=== PATIENT | male | born 1960 | race Caucasian/White ===

== ENCOUNTER 2024-03-06 11:02 | Outpatient (AMB) | payer OTHER, SELFPAY ==
--- NOTE | 2024-03-06 11:04 | MHC.OFFVIS ---
Vital Signs 03/06/24 11:13 Height 5 ft 6 in Weight 199 lb 8 oz BMI 32.2 BP 189/90 H Blood Pressure Location Lt brachial Position Sitting Pulse 80 Intake Visit Reasons: Ventral and large inguinal hernia Intake Note: Patient is seen in office for evaluation of a ventral & left inguinal hernia. Pt c/o: ventral hernia onset 5 yrs, lump has increase, no symptoms, left inguinal hernia onset 5 half yrs, lump has also increase, pain when sitting at times no other symptoms imaging:zero PCP:02/23/24 Car Icer Required: No Accompanied by: Self / Same As Patient Allergies No Known Allergies Allergy (Verified 03/06/24 11:08) Medication List - Last Reconciled 03/06/24 by Sriram Wyman MD cetirizine (Zyrtec) 10 mg PO DAILY PRN multivitamin (One Daily Multivitamin tablet) 1 tab PO DAILY omega 7-eew-mhu-fish oil 100-160-1,000 mg (Fish Oil) caps PO HPI Comments Details: 63-year-old male patient presenting for evaluation of an umbilical hernia and possible large left inguinal hernia. He feels the hernias have been present for at least 5 years and have gradually increased in size. He initially denied any pain but recently has begun to note increased discomfort at both sites. He denies any previous history of hernia surgery. He has had shoulder surgery and is currently on restrictions because of this until April. He denies nausea, vomiting, fever, chills, diarrhea, or constipation. 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) S/P left rotator cuff repair (2006) S/P right rotator cuff repair (2004) Social History Alcohol intake: current Alcohol intake frequency: 3 or more drinks per day Patient Tobacco Use Status: Never used Tobacco Review of Systems Const All systems reviewed & are unremarkable except as noted in HPI and below Denies chills, Denies fever(s), Denies headache(s), Denies poor appetite and Denies weakness ENT Denies headache(s) Card Denies chest pain, Denies irregular heart rhythm, Denies palpitations and Denies dyspnea Resp Denies cough, Denies excessive phlegm production and Denies dyspnea GI Denies abdominal pain, Denies bloating, Denies change in bowel habits, Denies constipation, Denies heartburn, Denies diarrhea, Denies nausea and Denies vomiting Denies difficulty urinating and Denies urinary frequency Musc Denies back pain, Denies muscle weakness and Denies numbness Skin/Breast Denies changing lesions and Denies unusual bruising Neuro Denies headache(s), Denies numbness, Denies paresthesias and Denies weakness Psych Denies anxiety and Denies depression Endo Denies palpitations Raman/Lymph Denies lymphadenopathy Physical Exam Vital Signs: Last Vital Signs Pulse 80 03/06/24 11:13 BP 189/90 H 03/06/24 11:13 BMI result Body Mass Index 32.2 Const General: cooperative and no acute distress Nutritional Appearance: well nourished Orientation/consciousness: patient oriented x3 Limitations: no limitations HEENT Head: Yes normocephalic and Yes atraumatic Ears: hearing grossly normal bilaterally Resp Effort & Inspection: normal respiratory effort, no audible wheezes, no cough and no respiratory distress Cardio Jugular venous distension: no JVD GI Other: Large umbilical and periumbilical hernia noted measuring at least 6 cm in diameter. Hernia does reduce with light pressure. No overlying skin changes are appreciated. Examination of the left groin reveals a large left scrotal hernia which transilluminates suggestive of a large hydrocele. Findings are suggestive of a communicating hydrocele. No hernias noted on the right side. Inspection: Yes normal to inspection Skin Other: Warm, dry, no rash Neuro General: patient oriented x3 Extrem General: Yes no clubbing, cyanosis or edema Assessment & Plan Assessment & Plan (1) Umbilical hernia without obstruction and without gangrene: Code(s): K42.9 - Umbilical hernia without obstruction or gangrene Category: Medical (2) Left hydrocele: Code(s): N43.3 - Hydrocele, unspecified Category: Medical (3) Left inguinal hernia: Code(s): K40.90 - Unilateral inguinal hernia, without obstruction or gangrene, not specified as recurrent Category: Medical Plan 63-year-old male patient presenting with both a large reducible umbilical hernia and combination left inguinal hernia with hydrocele. I recommended repair of both hernias with mesh and after discussion of the procedure, risks, and alternatives he consents to repair of the umbilical hernia and left inguinal hernia/hydrocele with mesh. Coding Level of Care Code New Pt Level 4 (86674) Diagnoses Umbilical hernia without obstruction and without gangrene K42.9 Left hydrocele N43.3 Left inguinal hernia K40.90
[2024-03-06 11:13] VITALS: BP 189/90; PULSE 80; BMI 32.2
== END 2024-03-06 11:24 | disposition home or self-care (01) ==
PROVIDERS: PCP Internal Medicine; Referring Provider Internal Medicine; Visit Provider Surgery
DX: K42.9 Umbilical hernia without obstruction or gangrene (principal); N43.3 Hydrocele, unspecified; K40.90 Unilateral inguinal hernia, without obstruction or gangrene, not specified as recurrent
CPT/HCPCS: 99204

== ENCOUNTER → 2024-03-06 11:02 | Outpatient (BNVA) | payer OTHER, SELFPAY | PROVIDERS: PCP Internal Medicine; Referring Provider Internal Medicine; Visit Provider Surgery ==

== ENCOUNTER 2024-04-02 10:40 | Day surgery (SDC) | payer OTHER, SELFPAY ==
[2024-03-26 09:44] VITALS: BMI 32.0
--- NOTE | 2024-03-27 10:27 | P.CONAN_ITS ---
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) S/P left rotator cuff repair (2006) S/P right rotator cuff repair (2004) Social History Social History Are you a primary pharmacist critical care to a significant other at home: No Do you presently have visiting nurse or other home services: No Alcohol intake: current Alcohol intake frequency: 3 or more drinks per day Patient Tobacco Use Status: Never used Tobacco Meds Allergies Allergy/AdvReac Type Severity Reaction Status Date / Time No Known Allergies Allergy Verified 04/02/24 11:57 Home Medications ?Medication ?Instructions ?Recorded ?Confirmed ?Last Taken ?Type cetirizine 10 mg capsule (Zyrtec) 10 mg PO Q2D 03/06/24 04/02/24 Unknown History multivitamin (One Daily 1 tab PO DAILY 03/06/24 04/02/24 03/18/24 History Multivitamin tablet) omega 8-aco-rve-fish oil 100 1 cap PO DAILY 03/06/24 04/02/24 04/18/23 History mg-160 mg-1,000 mg capsule (Fish Oil) Exam Height,Weight and Vital Signs: Height 5 ft 6 in Weight 89.811 kg Pertinent Lab Results Pertinent Lab Results: CBC and CMP from outside facility 02/2024 OK Assessment and Plan Assessment Anesthesia Assessment: Chart Reviewed Documented by User: Ramy Nathan MD 04/02/24 12:39 PMFSH Past Medical History Medical History (Updated 03/26/24 @ 09:42 by Jeri Evans RN) Seasonal allergies Family History Family history of problems with anesthesia: No Surgical History Surgical History Hx of arthroscopic knee surgery 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) S/P left rotator cuff repair (2006) S/P right rotator cuff repair (2004) History of Problems with Anesthesia: No Social History Social History Are you a primary pharmacist critical care to a significant other at home: No Do you presently have visiting nurse or other home services: No Alcohol intake: current Alcohol intake frequency: 3 or more drinks per day Patient Tobacco Use Status: Never used Tobacco Meds Allergies Allergy/AdvReac Type Severity Reaction Status Date / Time No Known Allergies Allergy Verified 04/02/24 11:57 Home Medications ?Medication ?Instructions ?Recorded ?Confirmed ?Last Taken ?Type cetirizine 10 mg capsule (Zyrtec) 10 mg PO Q2D 03/06/24 04/02/24 Unknown History multivitamin (One Daily 1 tab PO DAILY 03/06/24 04/02/24 03/18/24 History Multivitamin tablet) omega 3-rkx-rmk-fish oil 100 1 cap PO DAILY 03/06/24 04/02/24 04/18/23 History mg-160 mg-1,000 mg capsule (Fish Oil) Exam Airway Mallampati Class: II TM Dist: >3cm Neck ROM: Full Assessment and Plan Assessment Anesthesia Assessment: Anesthesia Plan Discussed Final Anesthetic Review Family History of Problems with Anesthesia: No History of Problems with Anesthesia: No NPO: Yes ASA Class: II Final Preanesthetic Review: No Changes in Pt Med Stat, Meds/Allgs Chart Reviewed, Consent Obtained/Reviewed, Anes Risks/Benef Reviewed and DNR Form (If Appl.) Patient Risk: Low Procedure Risk: Low Anesthetic Plan Anesthetic Plan: GA Disposition: Standard PACU
[2024-04-02] VITALS (7 sets, daily range): BP systolic 131–180; BP diastolic 58–76; PULSE 75–81; RESP 16–18; TEMP 36.1–37.1; O2SAT 93–98; BMI 31.7
[2024-04-02] MEDS: Lactated Ringers 1,000 ML 100 ML IVCONT (12:51)
--- NOTE | 2024-04-02 13:47 | MHC.SHP ---
Pre-Procedural Eval Section A - 24 Hr Update-Section A only Date of Service: 04/02/24 The patient is an INPATIENT: No Changes since office visit: Yes Patient answered all questions; No Cold of Flu in the past 2 weeks, No New Medical Problems and No Changes in Medication The patient has been examined within 24 hours of the surgical procedure. The History & Physical has been completed within 30 days and I have reviewed it.: Yes Section B - Complete if H&P > 30 days Chief Complaint: Umbilical hernia without obstruction or gangrene Allergies: Allergies Allergy/AdvReac Type Severity Reaction Status Date / Time No Known Allergies Allergy Verified 04/02/24 11:57 Plan Diagnosis/Plan: Unchanged I have reviewed the history and physical and performed a pertinent physical examination on my patient. No changes have occurred unless specified. Time Spent With Patient Time: Total time managing care of this patient today ____ minutes.
--- NOTE | 2024-04-02 15:40 | W.PM.OPN ---
Operative Note Operative Note Date of Service: 04/02/24 Narrative: Preoperative diagnosis: Left inguinal hernia, left hydrocele, umbilical hernia Postoperative diagnosis: Same Procedure: Repair left inguinal hernia with mesh, hydrocelectomy, repair of umbilical hernia with mesh Surgeon: Sriram Wyman MD Cath Lab Technologist: Carrie Chaney PA-C Anesthesia: General LMA Indications for procedure: 64-year-old male patient presenting with a large hydrocele in the left groin as well as a left inguinal hernia and umbilical hernia. On examination he has a large left hydrocele which does not increase in size with Valsalva maneuvers suggestive of a noncommunicating hydrocele. Umbilical hernia measures 6 cm in diameter Operative findings: Large left noncommunicating hydrocele, indirect left inguinal hernia, umbilical hernia 5 cm in diameter Specimen: Hernia sac, hydrocele Estimated blood loss: 10 mL Complications: None Procedure details: Patient was brought to the OR and placed in a supine position. After administering general anesthesia the patient's abdomen and scrotum were prepped with ChloraPrep and draped in a sterile fashion. A surgical time-out was called the consent confirmed. Patient received preoperative antibiotics and Venodyne boots were in place. Local anesthesia was infiltrated over the left inguinal ligament. Incision was then made with a scalpel and carried out through subcutaneous tissue, past Jaye's fascia and up to the external oblique aponeurosis. Additional local was infiltrated below the external oblique aponeurosis. This was then incised with a scalpel widened with the Metzenbaum scissors. The spermatic cord was then dissected free from the surrounding inguinal canal and retracted using a [place] drain. No direct hernia could be identified. Fibers of the cremaster muscle were then and a small indirect left inguinal hernia was identified. This was dissected down to the internal ring, ligated with a 0 Polysorb suture and then excised. Attention was then directed to the hydrocele which brought up through the incision. The sac was entered and a large hydrocele drained. Hydrocele sac was then completely excised and sent to pathology for further examination. Hemostasis was assured using electrocautery. Testicle was returned to the scrotal sac. Wounds were then irrigated with saline solution and suctioned dry. Fibers of the internal oblique aponeurosis and transversalis were using electrocautery. Preperitoneal space was then entered. This was widened using a open Ray-Neda sponge. A large extended PHS mesh was then obtained. The circular underlay was then deployed within the preperitoneal space. The overlay was then secured to the pubic tubercle, shelving edge of the inguinal ligament, and conjoined tendon using a 0 Polysorb suture. A slit was made in the mesh in the mesh wrapped around the spermatic cord at the internal ring. This was secured to the shelving edge using a 0 Polysorb suture. External oblique aponeurosis was then reapproximated using a running 2-0 Polysorb suture. 8 mL of Zenrelef was then instilled below the external oblique aponeurosis. Jaye's fascia and dermis were then reapproximated using interrupted 3-0 Polysorb sutures. Skin was then closed using a running subcuticular 4-0 Polysorb suture. Attention was then directed to the umbilical hernia. A curvilinear transverse incision was then created with a scalpel and carried out through subcutaneous tissue up to the hernia sac. The hernia sac was then dissected from the surrounding subcutaneous tissue down to the fascial defect. Two defects were noted adjacent to each other. These were combined into 1 fascial defect. The hernia sac was then dissected free from the surrounding fascia and excised. A preperitoneal space was then created using electrocautery and blunt dissection. An 8 cm round Ventralex mesh was then obtained. This was deployed within the preperitoneal space and secured in 4 quadrants using a 0 Tycron suture. Fascia was then closed over the mesh using a 0 Tycron sutures in a himthp-yo-dysty fashion. The mesh was completely covered by the fascia. Wounds were then irrigated with saline solution and suctioned dry. Subcutaneous tissue and dermis were then reapproximated using interrupted 3-0 Polysorb sutures. Skin was then closed using a running subcuticular 4-0 Polysorb suture. Steri-Strips, 2 x 2 gauze and Tegaderm were then applied. The patient tolerated the procedure well. Sponge, instrument, and needle counts reported as correct. The patient was transferred to PACU in stable condition.
[2024-04-02] MEDS: fentaNYL citrate/PF 100 MCG/2 ML VIAL 50 MCG IVPUSH (15:49)
== END 2024-04-02 16:44 | disposition home or self-care (01) ==
PROVIDERS: PCP Internal Medicine; Visit Provider Surgery
PROC: (CPT 49505; principal; 2024-04-02 13:10)
PROC: (CPT 49505; 2024-04-02 13:10)
DX: K40.90 Unilateral inguinal hernia, without obstruction or gangrene, not specified as recurrent (principal); N43.3 Hydrocele, unspecified; K42.9 Umbilical hernia without obstruction or gangrene; J30.2 Other seasonal allergic rhinitis; Z79.1 Long term (current) use of non-steroidal anti-inflammatories (NSAID); Z79.899 Other long term (current) drug therapy; Z96.611 Presence of right artificial shoulder joint; Z98.890 Other specified postprocedural states
CPT/HCPCS: 49505; 49593; 88302; C1781; C9088; J0131; J0690; J1100; J2003; J2250; J2405; J2704; J3010

== ENCOUNTER → 2024-04-02 10:40 | Outpatient (BNV) | payer OTHER, SELFPAY | PROVIDERS: PCP Internal Medicine; Visit Provider Surgery | DX: K40.90 Unilateral inguinal hernia, without obstruction or gangrene, not specified as recurrent (principal); K42.9 Umbilical hernia without obstruction or gangrene; N43.3 Hydrocele, unspecified | CPT/HCPCS: 49505; 49593; 55040; 55540 ==

== ENCOUNTER 2024-04-12 11:14 | Outpatient (AMB) | payer OTHER, SELFPAY ==
--- NOTE | 2024-04-12 11:15 | MHC.OFFVIS ---
Vital Signs 04/12/24 11:23 Height 5 ft 6 in Weight 200 lb 2 oz BMI 32.3 BP 178/82 H Blood Pressure Location Lt brachial Position Sitting Pulse 71 Intake Visit Reasons: S/P umbilical hernia & LIH/hydrocele w/mesh Intake Note: Patient is seen in office for post op assessment post repair LIH with mesh, hydrocelectomy & repair of umbilical hernia with mesh. Pt c/o: denies any concerns healing as expected surgery:04/02/24 Cook Pie Required: No Accompanied by: Self / Same As Patient Allergies No Known Allergies Allergy (Verified 04/12/24 11:19) Medication List - Last Reconciled 04/12/24 by Sriram Wyman MD cetirizine (Zyrtec) 10 mg PO Q2D multivitamin (One Daily Multivitamin tablet) 1 tab PO DAILY omega 2-yqy-ctv-fish oil 100-160-1,000 mg (Fish Oil) 1 cap PO DAILY HPI Comments Details: 64-year-old male patient returning 1 week following repair of an umbilical hernia and left inguinal hernia with hydrocele performed on 04/02/2024. He reports tolerating the procedure well with only a small area of burning below the incision on the left groin. He denies any bleeding or discharge from either incision. He denies any swelling in the testicle but did have some bruising initially. 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) S/P left rotator cuff repair (2006) S/P right rotator cuff repair (2004) Social History Are you a primary career professional to a significant other at home: No Do you presently have visiting nurse or other home services: No Alcohol intake: current Alcohol intake frequency: 3 or more drinks per day Patient Tobacco Use Status: Never used Tobacco Review of Systems Const All systems reviewed & are unremarkable except as noted in HPI and below Physical Exam Vital Signs: Last Vital Signs Pulse 71 04/12/24 11:23 BP 178/82 H 04/12/24 11:23 BMI result Body Mass Index 32.3 Const General: comfortable Nutritional Appearance: well nourished Orientation/consciousness: patient oriented x3 Resp Effort & Inspection: normal respiratory effort, no audible wheezes, no cough and no retractions GI Other: Soft, nondistended, well-healed umbilical incision with minimal edema surrounding the incision. Left groin incision is clean, dry, and intact. No hydrocele or seroma is identified. Testes is descended. Skin General skin exam: no rashes or lesions noted Neuro General: patient oriented x3 Assessment & Plan Assessment & Plan (1) Umbilical hernia without obstruction and without gangrene: Code(s): K42.9 - Umbilical hernia without obstruction or gangrene Category: Medical (2) Left inguinal hernia: Code(s): K40.90 - Unilateral inguinal hernia, without obstruction or gangrene, not specified as recurrent Category: Medical (3) Left hydrocele: Code(s): N43.3 - Hydrocele, unspecified Category: Medical Plan 64-year-old male status post repair of an umbilical hernia and left inguinal hernia with hydrocele. He tolerated the procedure well in his wounds are healing nicely. He should continue to avoid lifting greater than 10 lb for another 4 weeks. He will return at that time for wound examination. He is welcome to call sooner for any new complaints. Coding Level of Care Code Global (00884) Diagnoses Umbilical hernia without obstruction and without gangrene K42.9 Left inguinal hernia K40.90 Left hydrocele N43.3
[2024-04-12 11:23] VITALS: BP 178/82; PULSE 71; BMI 32.3
== END 2024-04-12 11:37 | disposition home or self-care (01) ==
PROVIDERS: PCP Internal Medicine; Visit Provider Surgery
DX: K42.9 Umbilical hernia without obstruction or gangrene (principal); K40.90 Unilateral inguinal hernia, without obstruction or gangrene, not specified as recurrent; N43.3 Hydrocele, unspecified
CPT/HCPCS: 99024

== ENCOUNTER 2024-05-18 09:20 | Outpatient (AMB) | payer OTHER, SELFPAY ==
--- NOTE | 2024-05-18 09:21 | A.OFFVIS_ITS ---
Intake Visit Reasons: 1 mth S/P umbilical hernia & LIH/hydrocele w/mesh Intake Note: Patient is seen in office for one month follow up visit, post LIH , hydrocelectomy & umbilical hernia repair. Pt c/o: reports incisions healing well. No longer taking rx pain meds. Traffic Control Supervisor Required: No Accompanied by: Self / Same As Patient Allergies No Known Allergies Allergy (Verified 05/18/24 09:31) HPI Comments Details: Patient returns 1 month following repair of a left inguinal hernia with hydrocele with mesh and umbilical hernia repair with mesh. He feels well and denies any abdominal pain at this time. He denies any scrotal swelling. 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) S/P left rotator cuff repair (2006) S/P right rotator cuff repair (2004) Social History Are you a primary manager managed care to a significant other at home: No Do you presently have visiting nurse or other home services: No Alcohol intake: current Alcohol intake frequency: 3 or more drinks per day Patient Tobacco Use Status: Never used Tobacco Physical Exam Const General: comfortable Nutritional Appearance: well nourished Orientation/consciousness: patient oriented x3 Resp Effort & Inspection: normal respiratory effort, no audible wheezes, no cough and no retractions GI Other: Soft, nondistended, well-healed umbilical incision with minimal edema surrounding the incision. Left groin incision is clean, dry, and intact. No hydrocele or seroma is identified. Testes is descended. Skin General skin exam: no rashes or lesions noted Neuro General: patient oriented x3 Assessment & Plan Assessment & Plan (1) Umbilical hernia without obstruction and without gangrene: Code(s): K42.9 - Umbilical hernia without obstruction or gangrene Category: Medical (2) Left inguinal hernia: Code(s): K40.90 - Unilateral inguinal hernia, without obstruction or gangrene, not specified as recurrent Category: Medical (3) Left hydrocele: Code(s): N43.3 - Hydrocele, unspecified Category: Medical Plan 64-year-old male status post repair of an umbilical hernia and left inguinal hernia with hydrocele one-month ago. He tolerated the procedure well in his wounds are healing nicely. There is no evidence of recurrent hernia or of wound infection. He may resume normal activity without restrictions and should follow up as needed. Coding Level of Care Code Global (80579) Diagnoses Umbilical hernia without obstruction and without gangrene K42.9 Left inguinal hernia K40.90 Left hydrocele N43.3
== END 2024-05-18 09:38 | disposition home or self-care (01) ==
PROVIDERS: PCP Internal Medicine; Visit Provider Surgery
DX: K42.9 Umbilical hernia without obstruction or gangrene (principal); K40.90 Unilateral inguinal hernia, without obstruction or gangrene, not specified as recurrent; N43.3 Hydrocele, unspecified
CPT/HCPCS: 99024

== ENCOUNTER → 2024-05-18 09:20 | Outpatient (BNVA) | payer OTHER, SELFPAY | PROVIDERS: PCP Internal Medicine; Visit Provider Surgery ==

== ENCOUNTER 2024-08-10 07:00 | Day surgery (SDC) | payer OTHER, SELFPAY ==
--- OUTSIDE RECORDS SUMMARY | 2024-07-04 09:16 | XMS_ITS | Patient Health Record ---
Author Organization [facility] Address [address] [place] [address] Care Team Providers Care Order Worker Name Role Phone Clarisa Knott Primary Care Provider Unavailab Bobo Street Jr [phone] Allergies No Known Allergies Reason For Referral No Information Medications Medication SIG (Take, Route, Fr equency, Duration) Notes Start Date End Date Status Multivitamin - 1 tablet Orally Once a day Active Allergy Active Fish Oil Active Social History Tobacco Use: Social History Observation Description Date Details (start date - stop date) Never Smoker NA - NA Tobacco Control (Standard) Question Answer Notes Tobacco use: Nonsmoker AUDIT-C (Standard) Question Answer Notes Did you have a drink contain ing alcohol in the past year? Yes How often did you have a dri nk containing alcohol in the past year? 2 to 3 times a week (3 points) How many drinks did you have on a typical day when you were drinking in the past year? 1 or 2 drinks (0 point) How often did you have six o r more drinks on one occasion in the past year? Never (0 point) Points 3 Interpretation Negative Vital Signs Blood pressure diastolic 11 mm Hg 06/28/2024 Height 67 in 06/28/2024 Blood pressure systolic 111 mm Hg 06/28/2024 Weight 201 lbs 06/28/2024 BMI 31.48 kg/m2 06/28/2024 Encounters Encounter Location Date Provider Diagnosis [facility] [address] [place] [address] 06/28/2024 Bobo Phoenix Jr Colon cancer screening Z12.11 Assessments Encounter Date Diagnosis (ICD Code) Assessment Notes Treatment Notes Treatment Clinical Notes Section Notes 06/28/2024 Colon cancer screening (ICD-10 - Z12.11) Plan Of Treatment Future Test Test Name Order Date COLONOSCOPY 06/28/2024 Next Appt Details Provider Name:Bobo Riki noble Jr, 08/10/2024 09:20:00 AM, [address] [place] [address] , [place], [place], [id number], Insurance Providers Payer Name Payer Address Payer Phone Subscriber Number Group Number Insured Name Patient Relationship to Insured Coverage Start Date Coverage End Date [employer] [place] [address] [id number] ALFREDO EMERSON Self - patient is the insured Medical (General) History Medical History History ICD Code Denies [place],DM,CVA,Lung disease,renal dise ase Surgical History Surgery Date(Month/Year) hernia surgery 2024 right shoulder replacement 2023 rotator cuff tear repair left and right [id number]
--- OUTSIDE RECORDS SUMMARY | 2024-07-04 09:17 | XMS_ITS ---
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 Name Role Phone Clarisa Knott Primary Care Provider UnavailBobo Bennett Jr [phone] Allergies No Known Allergies REASON FOR VISIT Patient presents today for a COLON SCREENING Medications Medication SIG (Take, Route, Fr equency, [...] 3 Interpretation Negative Vital Signs Blood pressure systolic 111 mm Hg 06/29/19 25 Blood pressure diastolic 11 mm Hg 025 Height 67 in 06/28/2024 Weight 201 lbs 06/28/2024 BMI 31.48 kg/m2 06/28/2024 Encounters Encounter Location Date Provider Diagnosis [facility] [address] [place] [address] 06/28/2024 Bobo Phoenix Jr Colon cancer screening Z12.11 Assessments Encounter Date Diagnosis (ICD Code) Assessment Notes Treatment Notes Treatment Clinical Notes Section Notes 06/28/2024 Colon cancer screening (ICD-10 - Z12.11) Plan Of Treatment Future Test Test Name Order Date COLONOSCOPY 06/28/2024 Next Appt Details Provider Name:Bobo noble Jr, 08/10/2024 09:20:00 AM, [address] [place] [address] , [place], [place], [id number], Progress Notes * ALFREDO EMERSONDOB: 2 (64 yo M)Acc No.[id number]:06/28/2024 Progress Notes Patient:?ALFREDO EMERSON Provider:?Bobo Phoenix MD :1960???Age:64 Y???Sex:Male Barber e:06/28/2024 Address:[address] [place], [place] [id number] Pcp:Clarisa Knott Subjective: * Chief Complaints: * ???1. Patient presents today for a COLON SCREENING. * Medical History:?Denies NH,D M,CVA,Lung disease,renal disease. * Surgical History:?rotator cu ff tear repair left and right [id number], right shoulder replacement 2023, hernia surgery 2024. * Family History:?Father: dece ased, prostate cancer, diagnosed with Diabetes.?Mother: .? no known hx colon cancer. * Social History:?Tobacco Use:?Tobacco Control (Standard)?Tobacco use:?Nonsmoker.?Miscellaneous:?Marital status: . 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 ???Drug/Alcohol:?AUDIT-C (Standard)?Did you have a drink containing alcohol in the past year??Yes,?How often did you have a drink containing alcohol in the past year??2 to 3 times a week (3 points),?How many drinks did you have on a typical day when you were drinking in the past year??1 or 2 drinks (0 point),?How often did you have six or more drinks on one occasion in the past year??Never (0 point),?Points?3,?Interpretation?Negative.? * Medications:?Taking Allergy , Taking Fish Oil , Taking Multivitamin - Tablet 1 tablet Orally Once a day , Medication List reviewed and reconciled with the patient * Allergies:?N.K.D.A. Objective: * Vitals:?Wt:201lbs, Ht:67in, BMI:31.48Index, BP:111/11mm Hg, Ht-cm: 170.18, Wt- k.17. Assessment: * Assessment: 1.?Colon cancer screening - Z12.11 (Primary)??? Plan: * Treatment: * Preventive Medicine:? ??Counseling:?Care goal follow-up plan:?Above Normal BMI Follow-up?Giving encouragement to exercise,?BMI management provided?Yes.? * * The named appointment provid er may or may not be the originator of this progress note, and it is not deemed complete until electronically signed by the appointment provider. Sign off status: Pending * Provider:?Bobo Phoenix MD Date:?0 06/28/2024 Generated for Per espinoza/Nalini/eTransmitting on:?07/04/2024 09:16 AM EDT
[2024-08-08 11:45] VITALS: BMI 31.5
[2024-08-10 07:19] VITALS: BP 172/70; PULSE 70; RESP 17; TEMP 36.8; O2SAT 99
[2024-08-10] MEDS: Lactated Ringers 1,000 ML 100 ML IVCONT (07:24)
--- NOTE | 2024-08-10 07:43 | HO.ANESPROP2 ---
Documented by User: Rosey Erickson NP 08/09/24 09:18 HPI - Anesthesia Eval Consult details Narrative: 64yo M for Colonoscopy s/p inguinal hernia repair 03/2024 with GA-LMA 5 PMFSH Active Problems Active Problems: All Active Problems Left inguinal hernia (Acute) Left hydrocele (Acute) Umbilical hernia without obstruction and without gangrene (Acute) Past Medical History Medical History Seasonal allergies Family History Family history of problems with anesthesia: No Surgical History Surgical History Hx of left inguinal hernia repair (04/02/24) Hx of umbilical hernia repair (04/02/24) Hx of arthroscopic knee surgery 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) S/P left rotator cuff repair (2006) S/P right rotator cuff repair (2004) History of Problems with Anesthesia: No Social History Social History Are you a primary respite care provider to a significant other at home: No Do you presently have visiting nurse or other home services: No Alcohol intake: current Alcohol intake frequency: 3 or more drinks per day Patient Tobacco Use Status: Never used Tobacco Use of substances other than those prescribed or required for medical reasons: No Have you been hit, kicked, punched, or otherwise hurt by someone within the past year? If so, by whom?: No Are you DNR?: No Advance Directives: No Advance Directives Information Provided: Yes Meds Allergies Allergy/AdvReac Type Severity Reaction Status Date / Time No Known Allergies Allergy Verified 08/10/24 07:11 Home Medications ?Medication ?Instructions ?Recorded ?Confirmed ?Last Taken ?Type cetirizine 10 mg capsule (Zyrtec) 10 mg PO Q2D 03/06/24 08/10/24 Unknown History multivitamin (One Daily 1 tab PO DAILY 03/06/24 08/10/24 03/18/24 History Multivitamin tablet) omega 5-ghr-ncy-fish oil 100 1 cap PO DAILY 03/06/24 08/10/24 07/31/24 History mg-160 mg-1,000 mg capsule (Fish Oil) Exam Height,Weight and Vital Signs: Height 5 ft 7 in Weight 91.172 kg Assessment and Plan Assessment Anesthesia Assessment: Chart Reviewed Final Anesthetic Review Family History of Problems with Anesthesia: No History of Problems with Anesthesia: No Documented by User: Mohini Simpson, DO 08/10/24 07:45 [facility] Past Medical History Medical History Seasonal allergies Family History Family history of problems with anesthesia: No Surgical History Surgical History Hx of left inguinal hernia repair (04/02/24) Hx of umbilical hernia repair (04/02/24) Hx of arthroscopic knee surgery 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) S/P left rotator cuff repair (2006) S/P right rotator cuff repair (2004) History of Problems with Anesthesia: No Social History Social History Are you a primary respite care provider to a significant other at home: No Do you presently have visiting nurse or other home services: No Alcohol intake: current Alcohol intake frequency: 3 or more drinks per day Patient Tobacco Use Status: Never used Tobacco Use of substances other than those prescribed or required for medical reasons: No Have you been hit, kicked, punched, or otherwise hurt by someone within the past year? If so, by whom?: No Are you DNR?: No Advance Directives: No Advance Directives Information Provided: Yes Meds Allergies Allergy/AdvReac Type Severity Reaction Status Date / Time No Known Allergies Allergy Verified 08/10/24 07:11 Home Medications ?Medication ?Instructions ?Recorded ?Confirmed ?Last Taken ?Type cetirizine 10 mg capsule (Zyrtec) 10 mg PO Q2D 03/06/24 08/10/24 Unknown History multivitamin (One Daily 1 tab PO DAILY 03/06/24 08/10/24 03/18/24 History Multivitamin tablet) omega 5-pga-wim-fish oil 100 1 cap PO DAILY 03/06/24 08/10/24 07/31/24 History mg-160 mg-1,000 mg capsule (Fish Oil) Exam Exam Date and Time: 08/10/24 0743 Height,Weight and Vital Signs: Height 5 ft 7 in Weight 91.172 kg Vital Signs Temperature 98.2 F 08/10/24 07:19 Pulse Rate 70 08/10/24 07:19 Respiratory Rate 17 08/10/24 07:19 Blood Pressure 172/70 H 08/10/24 07:19 Pulse Oximetry 99 08/10/24 07:19 Oxygen Delivery Method Room Air 08/10/24 07:19 Temperature 98.2 F 08/10/24 07:19 Pulse Rate 70 08/10/24 07:19 Respiratory Rate 17 08/10/24 07:19 Blood Pressure 172/70 H 08/10/24 07:19 Pulse Oximetry 99 08/10/24 07:19 Oxygen Delivery Method Room Air 08/10/24 07:19 Airway Mallampati Class: I TM Dist: >3cm Neck ROM: Full Loose/Missing/Broken Teeth: No (patient denies any loose or broken teeth) Heart: S1S2 Lungs: CTAB Assessment and Plan Assessment Anesthesia Assessment: Anesthesia Plan Discussed and Chart Reviewed Final Anesthetic Review Family History of Problems with Anesthesia: No History of Problems with Anesthesia: No NPO: Yes ASA Class: II Final Preanesthetic Review: No Changes in Pt Med Stat, Meds/Allgs Chart Reviewed, Consent Obtained/Reviewed and Anes Risks/Benef Reviewed Patient Risk: Low Procedure Risk: Low Anesthetic Plan Anesthetic Plan: MAC: and Agree w/ Assess. and Plan Disposition: Standard PACU
--- NOTE | 2024-08-10 08:23 | P.HPSUR_ITS ---
Pre-Procedural Eval Section A - 24 Hr Update-Section A only Date of Service: 08/10/24 Section B - Complete if H&P > 30 days Chief Complaint: Encounter for screening for malignant neoplasm of Details of Present Illness: see H&P no changes Relevant Family History (Specify if Yes): No Relevant Social History: None Present Medications: see Short Stay Collaborative assessment Medical History: No relevant PMH History of Previous Operations: No relevant previous surgery Allergies: Allergies Allergy/AdvReac Type Severity Reaction Status Date / Time No Known Allergies Allergy Verified 08/10/24 07:11 Review of Systems Sugical H&P ROS: Negative: Constitution, Cardiovascular, Respiratory, Neurological, Psychiatric, Hem-Onc, Allergic/Immunologic, Gastrointestinal, Genitourinary, Musculoskeletal, Integumentary, Endocrine and Eyes/Ears/No se/Throat Exam Surgical H&P Exam: Normal: HEENT, Normal: Heart, Normal: Lungs, Normal: Extremities, Normal: Abdomen, Normal: Skin and Normal: Neurological Plan Diagnosis/Plan: Unchanged I have reviewed the history and physical and performed a pertinent physical examination on my patient. No changes have occurred unless specified. Time Spent With Patient Time: Total time managing care of this patient today ____ minutes.
[2024-08-10 09:08] VITALS: BP 90/50; PULSE 61; RESP 12; TEMP 36.9; O2SAT 95
[2024-08-10 09:28] VITALS: BP 138/73; PULSE 61; RESP 18; TEMP 36.7; O2SAT 98
--- NOTE | 2024-08-10 11:40 | OP_ITS ---
DATE OF SERVICE: 08/10/2024 SURGEON: Bobo Phoenix MD INDICATIONS: Colon cancer screening. PREOPERATIVE DIAGNOSIS: POSTOPERATIVE DIAGNOSIS: PROCEDURE PERFORMED: Colonoscopy to the terminal ileum. ESTIMATED BLOOD LOSS: COMPLICATIONS: ANESTHESIA: Monitored anesthesia care. ASSISTANTS: SPECIMENS: PROCEDURE DESCRIPTION: A history and physical performed. The risks and benefits of the procedure were explained to the patient. Informed consent was obtained. The patient was placed in left lateral decubitus position. A digital rectal exam was performed and was found to be normal. The Olympus pediatric video colonoscope was introduced into the rectum and advanced to the cecum. The cecum was identified by transillumination, palpation, and identification of ileocecal valve. Examination was performed. The scope was removed. He tolerated the procedure well and was taken to Recovery in stable condition. FINDINGS: The terminal ileum was examined and appeared normal. Visualized colonic mucosa was normal. The quality of prep was good. No polyps were identified. Retroflexed examination showed small internal hemorrhoids. IMPRESSION: Normal colonoscopy. RECOMMENDATIONS: 1. Follow up as needed. 2. Repeat colonoscopy is recommended in 10 years for average-risk individuals. MD JIMMY Senior/MITZY / [id number]
== END 2024-08-10 10:02 | disposition home or self-care (01) ==
PROVIDERS: PCP Internal Medicine; Visit Provider Internal Medicine Gastroenterology
PROC: 0DJD8ZZ Inspection of Lower Intestinal Tract, Via Natural or Artificial Opening Endoscopic (ICD-10-PCS; CPT 45378; principal; 2024-08-10 08:20)
DX: Z12.11 Encounter for screening for malignant neoplasm of colon (principal); J30.2 Other seasonal allergic rhinitis; K64.8 Other hemorrhoids; Z79.899 Other long term (current) drug therapy; Z98.890 Other specified postprocedural states
CPT/HCPCS: 45378; J2003; J2704